=== PATIENT | male | born 1975 | race Caucasian/White ===

== ENCOUNTER 2016-08-23 05:07 | Emergency (ER) | payer MEDICARE, OTHER ==
[~2016-08-23 05:07] MED LIST: ASPIRIN EC81 MG PO; ZESTRIL10 MG PO
[2016-08-23 05:20] LABS: HEMOGLOBIN 13.9 gm/dl (14.0-17.5); RED BLOOD COUNT 4.95 M/UL (4.20-5.50); WHITE BLOOD COUNT 8.1 K/UL (4.5-11.0)
== END 2016-08-23 11:20 | disposition home or self-care (01) ==
LOC: ER1 05:07
PROVIDERS: Family Medicine
DX: E87.6 Hypokalemia (principal); R11.2 Nausea with vomiting, unspecified; N28.9 Disorder of kidney and ureter, unspecified; I10 Essential (primary) hypertension; E11.9 Type 2 diabetes mellitus without complications; E78.5 Hyperlipidemia, unspecified; Z88.0 Allergy status to penicillin; F17.220 Nicotine dependence, chewing tobacco, uncomplicated; Z79.899 Other long term (current) drug therapy
CPT/HCPCS: 36415; 36600; 70450; 71010; 80053; 80307; 81001; 82550; 82553; 82803; 83874; 84484; 85025; 93005; 96360; 96361; 99285